=== PATIENT | male | born 1995 | race Caucasian/White ===

== ENCOUNTER → 2020-02-18 | Outpatient (CLI) | payer OTHER ==
--- NOTE | 2020-02-18 15:36 | REPVR ---
PROCEDURE INFORMATION: Exam: CT Maxillofacial Without Contrast, Sinus Exam date and time: 02/18/2020 3:07 PM Age: 24 years old Clinical indication: Condition or disease; Other: Sinusitis; Additional info: Chronic pansinusitis TECHNIQUE: Imaging protocol: CT Maxillofacial without contrast. Focus on the sinuses. Radiation optimization: All CT scans at this facility use at least one of these dose optimization techniques: automated exposure control; mA and/or kV adjustment per patient size (includes targeted exams where dose is matched to clinical indication); or iterative reconstruction. COMPARISON: No relevant prior studies available. FINDINGS: Frontal sinuses: Moderate opacification of the right frontal sinus by mucosal disease and/or fluid. Retention cyst or polyp in the medial left frontal sinus. Both frontal recesses are opacified by mucosal disease. Ethmoid air cells: Prior right ethmoidectomies. There is anterior ethmoid opacity bilaterally. Sphenoid sinuses: The left sphenoid sinus is dominant extending across midline. Most likely surgical widening of the left sphenoid ostium which is widely patent. The right sphenoid sinus and sphenoid ostium are opacified by mucosal disease. A small right sphenoethmoidal (onodi) air cell demonstrates mucosal thickening posteriorly. Maxillary sinuses: Bilateral nasal antral window procedures. The surgical maxillary sinus drainage pathways are widely patent. Mild polypoid mucosal disease in both maxillary sinuses. No air-fluid levels. Orbits: Unremarkable. Nasal cavity/Septum: [place] left deviation of the nasal septum. Suggestion of an approximate 1.6 cm posterior right nasal cavity polyp, image 28 series 201, image 30 series 203. Soft tissues: Unremarkable. Bones/joints: A chronic appearing nasal bone fracture. IMPRESSION: 1. Fluid and/or mucosal disease moderately opacifying the right frontal sinus. 2. The bilateral frontal recesses are opacified by mucosal disease. 3. Chronic anterior ethmoid sinusitis bilaterally. 4. The right sphenoid sinus and sphenoid ostium are opacified by mucosal disease. 5. Suggestion of an approximate 1.6 cm polyp in the posterior right nasal cavity. 6. A small right sphenoethmoidal air cell, anatomic variant. 7. Mild, chronic maxillary sinusitis. The surgical drainage pathways are widely patent. Electronically signed by: Beatriz Guerrero On 02/18/2020 15:36:07 PM
== END ==
LOC: M RAD 14:54
PROVIDERS: ATTEND Otolaryngology
DX: J32.4 Chronic pansinusitis (principal)